=== PATIENT | female | born 1980 | race Caucasian/White ===

== ENCOUNTER → 2016-09-06 | Outpatient (CLI) | payer MEDICARE, MEDICAID ==
[~2016-09-06] MED LIST: ALLEGRA30 MG PO; ATARAX25 MG PO; BIRTH CONTROL1 EAC1 PO; CARAFATE1 G1 PO; CYMBALTA30 M1 PO; DOXYCYCLINE100 M2 PO; FLONASE 0.05% 121 EA NAS; FLONASE0.05 MG/AC NS; IBUPROFEN800 MG PO; MACROBID100 M1 PO; MIRALAX17 GM/DOSE PO; MULTI VITAMINS1 TAB PO; NITROFURANTOIN100 MG PO; PEPCID20 MG PO; PHENERGAN W/ DE30 ML PO; PREDNICOT10 MG PO; PREDNICOT20 MG PO; PREVACID30 M1 PO; PROAIR HFA0.09 MG/AC INH; PYRIDIUM200 MG PO; Phenergan25 MG PO; REGLAN10 M1 PO; REGLAN10 MG PO; REGLAN5 MG; REMERON15 M1 PO; SINGULAIR10 MG PO; STRATTERA10 MG PO; VIBRAMYCIN100 MG PO; VITAMIN D5000 IU PO; VITAMIN D50000 I3 PO; XANAX0.25 MG PO; XANAX0.5 MG PO; ZANTAC150 MG PO; ZITHROMAX Z PA250 MG PO; Zofran4 MG PO
[2016-09-06 10:58] LABS: ALBUMIN 3.9 gm/dl (3.1-4.5); ALKALINE PHOSPHATASE 63 U/L (45-117); BILIRUBIN, DIRECT < 0.1 mg/dL (0.0-0.2); BILIRUBIN, TOTAL 0.5 mg/dl (0.2-1.0); BUN 10 mg/dl (7-24); CHOLESTEROL 150 mg/dL (<200); EST GLOM FILT AFRICAN AMERICAN > 60 ml/min; GLUCOSE 86 mg/dL (65-99); HDL CHOLESTEROL 66 mg/dl (40-60); LDL CHOLESTEROL 66 mg/dL (9-159); SGOT/AST 21 IU/L (3-35); SGPT/ALT 17 U/L (12-78); TOTAL PROTEIN 6.6 gm/dL (6.4-8.2); TRIGLYCERIDES 89 mg/dl (<150); VLDL CHOLESTEROL 18 mg/dL (6-40)
[2016-09-06 11:13] LABS: FREE T4 1.07 ng/dl (0.76-1.46)
== END | disposition home or self-care (01) ==
LOC: LAB 09:54
PROVIDERS: Internal Medicine
DX: E78.4 Other hyperlipidemia (principal); E55.9 Vitamin D deficiency, unspecified; L98.8 Other specified disorders of the skin and subcutaneous tissue; R63.5 Abnormal weight gain; R73.02 Impaired glucose tolerance (oral); Z79.1 Long term (current) use of non-steroidal anti-inflammatories (NSAID)

== ENCOUNTER 2016-11-12 11:44 | Emergency (ER) | payer MEDICARE, OTHER ==
[~2016-11-12] VITALS: Ht 152.4 cm; Wt 56.7 kg
[2016-11-12 12:13] LABS: BASO % 0.2 % (0.0-1.0); EOS # 0.1 10*3/uL (0.0-0.4); EOS % 1.4 % (1.0-4.0); HEMATOCRIT 35.1 % (37.0-47.0); HEMOGLOBIN 12.6 g/dl (12.0-16.0); LYMPH # 1.4 10*3/uL (1.3-4.4); MEAN CELL VOLUME 90.9 fl (81.0-99.0); MEAN CORPUSCULAR HGB 32.6 pg (27.0-31.0); MEAN CORPUSCULAR HGB CONC 35.9 g/dl (33.0-37.0); MEAN PLATELET VOLUME 10.7 fl (9.6-12.3); MONO # 0.3 10*3/uL (0.1-1.0); MONO % 7.5 % (3.0-9.0); NEUT # 2.4 10*3/uL (2.3-7.9); NEUT % 57.7 % (47.0-73.0); PLATELET COUNT AUTOMATED 267 10*3/uL (130-400); RED BLOOD COUNT 3.86 10*6/uL (4.10-5.10); RED CELL DISTRI WIDTH 11.7 % (0-14.5); WHITE BLOOD COUNT 4.2 10*3/uL (4.8-10.8)
[2016-11-12 12:28] LABS: ALBUMIN 3.9 gm/dl (3.1-4.5); ALKALINE PHOSPHATASE 68 U/L (45-117); BILIRUBIN, TOTAL 0.3 mg/dl (0.2-1.0); BUN 12 mg/dl (7-24); CARBON DIOXIDE 27 mmol/L (21-32); CHLORIDE 107 mmol/L (98-107); EST GLOM FILT AFRICAN AMERICAN > 60 ml/min; GLUCOSE 91 mg/dL (65-99); SGOT/AST 16 IU/L (3-35); SGPT/ALT 17 U/L (12-78); SODIUM 140 mmol/L (136-145); TOTAL PROTEIN 6.7 gm/dL (6.4-8.2)
[2016-11-12 12:43] LABS: BILIRUBIN NEGATIVE (NEGATIVE); BLOOD NEGATIVE (NEGATIVE); CLARITY SL CLOUDY (CLEAR); COLOR YELLOW (YELLOW); GLUCOSE NEGATIVE (NEGATIVE); KETONE NEGATIVE (NEGATIVE); LEUKO ESTERASE NEGATIVE (NEGATIVE); NITRITE NEGATIVE (NEGATIVE); PROTEIN NEGATIVE (NEGATIVE); SPECIFIC GRAVITY >= 1.030 (1.005-1.030); UROBILINOGEN 0.2 E.U./dl (0.2-1.0)
[2016-11-12 12:52] LABS: BACTERIA 1+
[2016-11-12 12:53] LABS: URINE REFLEX COMMENT NO (NO)
[2016-11-12] MEDS ORDERED: ZOFRAN ODT4 MG SL (17:26)
== END 2016-11-12 20:19 | disposition home or self-care (01) ==
LOC: ED 11:44
PROVIDERS: Nurse Practitioner Family
DX: A08.4 Viral intestinal infection, unspecified (principal); K59.00 Constipation, unspecified; Z88.1 Allergy status to other antibiotic agents; Z79.899 Other long term (current) drug therapy

== ENCOUNTER → 2017-03-15 | Outpatient (CLI) | payer MEDICARE, OTHER ==
[~2017-03-15] MED LIST changes: +ZOFRAN ODT4 MG SL
[2017-03-15 12:37] LABS: ALBUMIN 4.1 gm/dl (3.1-4.5); BILIRUBIN, DIRECT 0.1 mg/dL (0.0-0.2); BUN 13 mg/dl (7-24); CHLORIDE 105 mmol/L (98-107); POTASSIUM 3.9 mmol/L (3.5-5.1); SODIUM 139 mmol/L (136-145)
[2017-03-15 12:41] LABS: ALKALINE PHOSPHATASE 73 U/L (45-117); CHOLESTEROL 163 mg/dL (<200); CREATININE 0.81 mg/dL (0.55-1.02); HDL CHOLESTEROL 69 mg/dl (40-60); LDL CHOLESTEROL 78 mg/dL (9-159); SGOT/AST 17 IU/L (3-35); SGPT/ALT 21 U/L (12-78); TOTAL PROTEIN 7.1 gm/dL (6.4-8.2); TRIGLYCERIDES 78 mg/dl (<150); VLDL CHOLESTEROL 16 mg/dL (6-40)
== END | disposition home or self-care (01) ==
LOC: LAB 11:41
PROVIDERS: Internal Medicine
DX: E55.9 Vitamin D deficiency, unspecified (principal); R73.02 Impaired glucose tolerance (oral); E78.4 Other hyperlipidemia; G47.62 Sleep related leg cramps; Z79.1 Long term (current) use of non-steroidal anti-inflammatories (NSAID)

== ENCOUNTER → 2017-06-20 | Outpatient (CLI) | payer MEDICARE, OTHER | END | disposition home or self-care (01) | LOC: US 15:39 | DX: R10.2 Pelvic and perineal pain (principal) ==

== ENCOUNTER → 2017-08-03 | Outpatient (CLI) | payer MEDICARE, OTHER | END | disposition home or self-care (01) | LOC: CT 08:37 | DX: R10.30 Lower abdominal pain, unspecified (principal); R11.0 Nausea ==

== ENCOUNTER 2017-08-07 18:16 | Inpatient (IN) | payer MEDICARE, OTHER ==
[2017-08-07] VITALS: BP 100/65
[~2017-08-07] VITALS: Ht 152.4 cm; Wt 62.8 kg
--- NOTE | ~2017-08-07 | O ---
[place], [place] OPERATIVE NOTE [id number] UN[facility] #: [id number] ROOM: 502 DOCTOR: SUBHASH MORENOFAITHRADHA BIRTHDATE: [birth year] DOS: 08/09/2017 GASTROENDOSCOPIC REPORT INDICATIONS: A 36-year-old patient who has presented with a chief complaint of repeated emesis and the patient with history of collagenous colitis as well in the past approximately 3 years ago. PAST MEDICAL HISTORY: Anxiety, asthma, ADHD, allergic rhinitis, and GERD. PAST SURGICAL HISTORY: None. SOCIAL HISTORY: Nonsmoker, nonalcohol consumer. FAMILY HISTORY: Noncontributory. ALLERGIES: LEVOFLOXACIN. MEDICATIONS: List at home reviewed, includes metoclopramide as well a.c. and at bedtime 4 times a day. DIAGNOSTIC DATA: Labs reviewed and records reviewed. Her serum was negative. Sonogram of the abdomen has been reviewed. Mild left renal atrophy has been noticed. Urine culture negative and echocardiogram benign. Hemoglobin A1c 5.2. Comprehensive metabolic panel of the admission. GFR greater than 60. Lipase was 421, nonspecific. Amylase within normal limits. CT scan of the abdomen and pelvis, no evidence of acute traumatic injury was noticed. PROCEDURE: Today's procedure part of investigation of nausea and vomiting is panendoscopy plus biopsy. PREMEDICATION: Versed and propofol. SCOPE: Olympus forward-viewing gastroscope Q10 video. REPORT: After putting the patient in left lateral position and application of lubricant to the scope, the scope was introduced. Thereafter, under direct visualization, advanced through the length of esophagus without difficulty. Gastric pouch was entered. Evidence of bile reflux gastritis was noticed. Antrum was biopsied. Duodenal bulb consistent with duodenitis. Antral biopsy obtained. GI reflection of the scope reveals proximal gastritis as well due to the efflux of the bile into the proximal stomach photographed. Air was suctioned out. The patient was extubated and tolerated the procedure well. IMPRESSION: Bile reflux gastritis, status post biopsy. PLAN AND DISCUSSION: We are going to treat this patient with sucralfate slurry 2 g 2 hours a.c. and at bedtime. Continue with Protonix 40 mg IV b.i.d. while inpatient and she has been on Reglan 10 mg before meals and at bedtime. We are going to make sure that she gets the same dose and antireflux with elevation of [place], [place] OPERATIVE NOTE NAME: NAYELI GREGG UNIT #: [id number] ROOM: [facility] DOCTOR: SUBHASH MORENO,JESSICA BIRTHDATE: [birth year] the head of the bed 10 inches all time. GERD diet and clinical reassessment. I have reviewed her lab results. We are going to proceed with endoscopy today. JESSICA CULLEN MD CM:OPRECORD:OPERATIVE NOTE 1305 [id number] JESSICA CULLEN MD 08/09/17 1329 interface
[~2017-08-07 18:16] MED LIST changes: -PROAIR HFA0.09 MG/AC INH; +PROAIR HFA8.5 GM INH
[2017-08-07 18:20] VITALS: BP 105/60
[2017-08-07 18:46] LABS: BASO % 0.3 % (0.0-1.0); EOS # 0.1 10*3/uL (0.0-0.4); EOS % 0.7 % (1.0-4.0); HEMATOCRIT 34.9 % (37.0-47.0); HEMOGLOBIN 12.1 g/dl (12.0-16.0); LYMPH # 1.4 10*3/uL (1.3-4.4); MEAN CELL VOLUME 92.3 fl (81.0-99.0); MEAN CORPUSCULAR HGB CONC 34.7 g/dl (33.0-37.0); MEAN PLATELET VOLUME 10.9 fl (9.6-12.3); MONO # 0.5 10*3/uL (0.1-1.0); MONO % 7.1 % (3.0-9.0); NEUT # 5.3 10*3/uL (2.3-7.9); NEUT % 72.8 % (47.0-73.0); PLATELET COUNT AUTOMATED 240 10*3/uL (130-400); RED BLOOD COUNT 3.78 10*6/uL (4.10-5.10); RED CELL DISTRI WIDTH 12.1 % (0-14.5); WHITE BLOOD COUNT 7.3 10*3/uL (4.8-10.8)
[2017-08-07 19:01] LABS: ALBUMIN 3.9 gm/dl (3.1-4.5); ALKALINE PHOSPHATASE 60 U/L (45-117); BUN 15 mg/dl (7-24); CHLORIDE 107 mmol/L (98-107); LIPASE 421 U/L (73-393); POTASSIUM 3.7 mmol/L (3.5-5.1); SGOT/AST 13 IU/L (3-35); SGPT/ALT 17 U/L (12-78); SODIUM 141 mmol/L (136-145); TOTAL PROTEIN 6.4 gm/dL (6.4-8.2)
[2017-08-07 20:00] VITALS: BP 100/65
[2017-08-07 21:14] LABS: BILIRUBIN NEGATIVE (NEGATIVE); BLOOD 3+ (NEGATIVE); CLARITY CLEAR (CLEAR); COLOR YELLOW (YELLOW); GLUCOSE NEGATIVE (NEGATIVE); KETONE TRACE (NEGATIVE); LEUKO ESTERASE NEGATIVE (NEGATIVE); NITRITE NEGATIVE (NEGATIVE); PH 5.5 (5.0-9.0); UROBILINOGEN 0.2 E.U./dl (0.2-1.0)
[2017-08-07 21:31] LABS: RBC TNTC rbc/hpf (0-2)
[2017-08-07 21:32] LABS: BACTERIA 2+
[2017-08-07 22:15] VITALS: BP 116/71
[2017-08-08 07:05] LABS: BASO % 0.4 % (0.0-1.0); EOS % 0.4 % (1.0-4.0); HEMATOCRIT 33.2 % (37.0-47.0); HEMOGLOBIN 11.3 g/dl (12.0-16.0); LYMPH # 1.2 10*3/uL (1.3-4.4); MEAN CELL VOLUME 93.8 fl (81.0-99.0); MEAN CORPUSCULAR HGB 31.9 pg (27.0-31.0); MEAN PLATELET VOLUME 11.7 fl (9.6-12.3); MONO # 0.4 10*3/uL (0.1-1.0); MONO % 7.4 % (3.0-9.0); NEUT # 3.4 10*3/uL (2.3-7.9); NEUT % 67.6 % (47.0-73.0); PLATELET COUNT AUTOMATED 204 10*3/uL (130-400); RED BLOOD COUNT 3.54 10*6/uL (4.10-5.10)
[2017-08-08 07:29] LABS: ALBUMIN 3.2 gm/dl (3.1-4.5); BUN 11 mg/dl (7-24); CHLORIDE 111 mmol/L (98-107); CHOLESTEROL 110 mg/dL (<200); CREATININE 0.71 mg/dL (0.55-1.02); POTASSIUM 3.8 mmol/L (3.5-5.1); SGOT/AST 11 IU/L (3-35); SGPT/ALT 15 U/L (12-78); SODIUM 142 mmol/L (136-145); TOTAL PROTEIN 5.4 gm/dL (6.4-8.2); TRIGLYCERIDES 54 mg/dl (<150); VLDL CHOLESTEROL 11 mg/dL (6-40)
[2017-08-08 07:35] LABS: ALKALINE PHOSPHATASE 53 U/L (45-117); HDL CHOLESTEROL 48 mg/dl (40-60); LDL CHOLESTEROL 51 mg/dL (9-159)
[2017-08-08 08:00] VITALS: BP 110/58
[2017-08-08 08:32] LABS: VITAMIN D, 25-HYDROXY 20.7 ng/mL (30-100)
[2017-08-08] MEDS ORDERED: CARAFATE1 G1 PO (09:56)
[2017-08-08] MEDS ORDERED: APRI 28 DAY TA1 EACH PO (09:57)
[2017-08-08] MEDS ORDERED: LEXAPRO10 MG PO (09:57)
[2017-08-08] MEDS ORDERED: PROTONIX IV40 MG PO (09:58)
[2017-08-08] MEDS ORDERED: ALLEGRA ALLERG180 M2 PO (09:58)
[2017-08-08] MEDS ORDERED: XANAX0.5 MG PO (10:00)
[2017-08-08] MEDS ORDERED: ADVAIR 250/501 EA INH (10:07)
[2017-08-08] MEDS ORDERED: STRATTERA60 MG PO (10:08)
[2017-08-08 12:00] VITALS: BP 100/57
[2017-08-08 16:00] VITALS: BP 92/62
[2017-08-08 20:00] VITALS: BP 105/67
[2017-08-09] VITALS (9 sets, daily range): BP systolic 106–145; BP diastolic 60–74
[2017-08-09 06:43] LABS: BUN 8 mg/dl (7-24); CHLORIDE 114 mmol/L (98-107); CREATININE 0.69 mg/dL (0.55-1.02); POTASSIUM 3.8 mmol/L (3.5-5.1); SODIUM 144 mmol/L (136-145)
[2017-08-09 06:44] LABS: BASO % 0.5 % (0.0-1.0); EOS % 0.2 % (1.0-4.0); HEMATOCRIT 32.5 % (37.0-47.0); LYMPH # 0.9 10*3/uL (1.3-4.4); MEAN CELL VOLUME 94.8 fl (81.0-99.0); MEAN CORPUSCULAR HGB 32.1 pg (27.0-31.0); MEAN CORPUSCULAR HGB CONC 33.8 g/dl (33.0-37.0); MEAN PLATELET VOLUME 11.7 fl (9.6-12.3); MONO # 0.3 10*3/uL (0.1-1.0); MONO % 6.5 % (3.0-9.0); NEUT # 3.1 10*3/uL (2.3-7.9); NEUT % 71.6 % (47.0-73.0); PLATELET COUNT AUTOMATED 186 10*3/uL (130-400); RED BLOOD COUNT 3.43 10*6/uL (4.10-5.10); RED CELL DISTRI WIDTH 12.2 % (0-14.5); WHITE BLOOD COUNT 4.3 10*3/uL (4.8-10.8)
[2017-08-10] VITALS: BP 149/66
[2017-08-10 06:52] LABS: BASO % 0.2 % (0.0-1.0); EOS % 0.8 % (1.0-4.0); HEMATOCRIT 31.4 % (37.0-47.0); HEMOGLOBIN 11.1 g/dl (12.0-16.0); LYMPH % 19.4 % (27.0-41.0); MEAN CELL VOLUME 92.1 fl (81.0-99.0); MEAN CORPUSCULAR HGB 32.6 pg (27.0-31.0); MEAN CORPUSCULAR HGB CONC 35.4 g/dl (33.0-37.0); MEAN PLATELET VOLUME 12.1 fl (9.6-12.3); MONO # 0.4 10*3/uL (0.1-1.0); MONO % 7.1 % (3.0-9.0); NEUT # 3.7 10*3/uL (2.3-7.9); NEUT % 72.3 % (47.0-73.0); PLATELET COUNT AUTOMATED 190 10*3/uL (130-400); RED BLOOD COUNT 3.41 10*6/uL (4.10-5.10); WHITE BLOOD COUNT 5.1 10*3/uL (4.8-10.8)
[2017-08-10 07:06] LABS: BUN 7 mg/dl (7-24); CHLORIDE 111 mmol/L (98-107); CREATININE 0.71 mg/dL (0.55-1.02); POTASSIUM 3.2 mmol/L (3.5-5.1); SODIUM 143 mmol/L (136-145)
[2017-08-10 08:00] VITALS: BP 128/78
[2017-08-10 12:00] VITALS: BP 129/72
== END 2017-08-10 16:00 | disposition home or self-care (01) | DRG 391 ==
LOC: ED 18:16 → 5E 21:25 → EDHOLD 21:25 → 5E 21:44
PROVIDERS: Emergency Medicine; Family Medicine; Internal Medicine Hospice and Palliative Medicine
PROC: 0DB68ZX Excision of Stomach, Via Natural or Artificial Opening Endoscopic, Diagnostic (ICD-10-PCS; principal; 2017-08-09)
DX: K52.9 Noninfective gastroenteritis and colitis, unspecified (principal); K85.90 Acute pancreatitis without necrosis or infection, unspecified; R55 Syncope and collapse; K21.9 Gastro-esophageal reflux disease without esophagitis; F90.9 Attention-deficit hyperactivity disorder, unspecified type; R31.29 Other microscopic hematuria; F41.1 Generalized anxiety disorder; D72.810 Lymphocytopenia; R73.9 Hyperglycemia, unspecified; E55.9 Vitamin D deficiency, unspecified; J45.909 Unspecified asthma, uncomplicated; K29.80 Duodenitis without bleeding; K29.60 Other gastritis without bleeding; W18.30XA Fall on same level, unspecified, initial encounter; Y93.89 Activity, other specified; Y92.89 Other specified places as the place of occurrence of the external cause; Y99.8 Other external cause status; Z88.1 Allergy status to other antibiotic agents; Z83.3 Family history of diabetes mellitus; Z80.9 Family history of malignant neoplasm, unspecified; Z82.49 Family history of ischemic heart disease and other diseases of the circulatory system; Z83.49 Family history of other endocrine, nutritional and metabolic diseases; Z83.79 Family history of other diseases of the digestive system; Z79.899 Other long term (current) drug therapy; Z79.51 Long term (current) use of inhaled steroids

== ENCOUNTER 2018-03-28 12:36 | Emergency (ER) | payer MEDICARE, OTHER ==
[~2018-03-28] VITALS: Ht 152.4 cm; Wt 61.7 kg
[~2018-03-28 12:36] MED LIST changes: +ADVAIR 250/501 EA INH; +ALLEGRA ALLERG180 M2 PO; +APRI 28 DAY TA1 EACH PO; +LEXAPRO10 MG PO; +MIRALAX17 GM PO; +PROTONIX IV40 MG PO; +STRATTERA60 MG PO; +Zofran4 MG SL
[2018-03-28] MEDS ORDERED: CLARITIN10 MG PO (13:12)
[2018-03-28] MEDS ORDERED: PREDNISONE10 MG PO (13:12)
[2018-03-28] MEDS ORDERED: FLONASE ALLERG9.9 ML NAS (13:12)
== END 2018-03-28 14:31 | disposition home or self-care (01) ==
LOC: ED 12:36
DX: B34.9 Viral infection, unspecified (principal); K21.9 Gastro-esophageal reflux disease without esophagitis; J45.909 Unspecified asthma, uncomplicated; Z88.1 Allergy status to other antibiotic agents; Z79.899 Other long term (current) drug therapy

== ENCOUNTER → 2018-05-15 | Outpatient (CLI) | payer MEDICARE, OTHER ==
[~2018-05-15] MED LIST changes: +CLARITIN10 MG PO; +FLONASE ALLERG9.9 ML NAS; +PREDNISONE10 MG PO
== END | disposition home or self-care (01) ==
LOC: US 13:30
DX: N91.2 Amenorrhea, unspecified (principal)

== ENCOUNTER → 2018-12-04 | Outpatient (CLI) | payer OTHER | END | disposition home or self-care (01) | LOC: US 10:00 | DX: R11.2 Nausea with vomiting, unspecified (principal); R10.11 Right upper quadrant pain ==

== ENCOUNTER → 2018-12-18 | Outpatient (CLI) | payer OTHER | END | disposition home or self-care (01) | LOC: NM 06:52 | DX: R11.2 Nausea with vomiting, unspecified (principal); R10.11 Right upper quadrant pain; R11.0 Nausea ==

== ENCOUNTER 2019-01-05 18:27 | Emergency (ER) | payer OTHER ==
[~2019-01-05] VITALS: Ht 152.4 cm; Wt 68.9 kg
[2019-01-05 19:33] LABS: BASO % 0.2 % (0.0-1.0); EOS % 0.2 % (1.0-4.0); HEMATOCRIT 35.2 % (37.0-47.0); HEMOGLOBIN 11.9 g/dl (12.0-16.0); LYMPH # 1.9 10*3/uL (1.3-4.4); LYMPH % 32.1 % (27.0-41.0); MEAN CORPUSCULAR HGB 30.7 pg (27.0-31.0); MEAN CORPUSCULAR HGB CONC 33.8 g/dl (33.0-37.0); MEAN PLATELET VOLUME 10.7 fl (9.6-12.3); MONO # 0.6 10*3/uL (0.1-1.0); MONO % 9.8 % (3.0-9.0); NEUT # 3.4 10*3/uL (2.3-7.9); NEUT % 57.5 % (47.0-73.0); PLATELET COUNT AUTOMATED 310 10*3/uL (130-400); RED BLOOD COUNT 3.87 10*6/uL (4.10-5.10); RED CELL DISTRI WIDTH 12.6 % (0-14.5); WHITE BLOOD COUNT 5.8 10*3/uL (4.8-10.8)
[2019-01-05 19:48] LABS: ALBUMIN 3.7 gm/dl (3.1-4.5); ALKALINE PHOSPHATASE 73 U/L (45-117); BUN 16 mg/dl (7-24); CHLORIDE 109 mmol/L (98-107); CREATININE 0.99 mg/dL (0.55-1.02); LIPASE 505 U/L (73-393); SGOT/AST 24 IU/L (3-35); SGPT/ALT 37 U/L (12-78); SODIUM 140 mmol/L (136-145); TOTAL PROTEIN 6.8 gm/dL (6.4-8.2)
[2019-01-05 19:54] LABS: BILIRUBIN NEGATIVE (NEGATIVE); BLOOD NEGATIVE (NEGATIVE); CLARITY CLEAR (CLEAR); COLOR YELLOW (YELLOW); GLUCOSE NEGATIVE (NEGATIVE); KETONE NEGATIVE (NEGATIVE); LEUKO ESTERASE NEGATIVE (NEGATIVE); NITRITE NEGATIVE (NEGATIVE); SPECIFIC GRAVITY 1.015 (1.005-1.030)
[2019-01-05 20:21] LABS: BACTERIA 1+; RBC 0-2 rbc/hpf (0-2); WBC 0-2 wbc/hpf (0-5)
== END 2019-01-05 22:59 | disposition home or self-care (01) ==
LOC: ED 18:27
PROVIDERS: Emergency Medicine
DX: N83.202 Unspecified ovarian cyst, left side (principal); R19.7 Diarrhea, unspecified; J45.909 Unspecified asthma, uncomplicated; K21.9 Gastro-esophageal reflux disease without esophagitis; Z88.1 Allergy status to other antibiotic agents; Z79.899 Other long term (current) drug therapy

== ENCOUNTER → 2019-01-07 | Outpatient (CLI) | payer OTHER ==
[2019-01-07 09:10] LABS: FREE T4 0.93 ng/dl (0.76-1.46); THYROID STIM HORMONE (HS) 2.82 uIU/ml (0.358-4.75)
[2019-01-07 10:24] LABS: VITAMIN D, 25-HYDROXY 24.6 ng/mL (30-100)
[2019-01-08 06:06] LABS: LUTEINIZING HORMONE 004283 6.3 mIU/mL (.); PROLACTIN 004465 21.3 ng/mL (4.8-23.3)
[2019-01-08 17:09] LABS: t-TRANSGLUTAMINASE (tTG) IGA <2 U/mL (0-3)
[2019-01-09 16:07] LABS: TESTOSTERONE FREE, (DIRECT) 2.2 pg/mL (0.0-4.2)
[2019-01-11 10:16] LABS: 17-OH PROGESTERONE 194 ng/dL (.)
[2019-01-11 11:18] LABS: ANTIMULLERIAN HORMONE 500183 0.066 ng/mL (.)
[2019-01-16 17:05] LABS: ADRENAL 21-HYDROXYLASE AB <1.0 U/mL (.)
== END | disposition home or self-care (01) ==
LOC: LAB 07:49
PROVIDERS: Internal Medicine Endocrinology, Diabetes & Metabolism
DX: E55.9 Vitamin D deficiency, unspecified (principal); N91.2 Amenorrhea, unspecified; E53.8 Deficiency of other specified B group vitamins; R63.5 Abnormal weight gain; Z79.899 Other long term (current) drug therapy

== ENCOUNTER → 2019-05-01 | Day surgery (SDC) | payer OTHER ==
[~2019-05-01] VITALS: Ht 152.4 cm; Wt 64.0 kg
[~2019-05-01] MED LIST changes: +BUSPAR5 MG PO
[2019-05-01 08:38] VITALS: BP 112/55
[2019-05-01 09:15] VITALS: BP 101/51
[2019-05-01 09:31] VITALS: BP 101/51
== END | disposition home or self-care (01) ==
LOC: SDC 04-27 08:45
DX: K21.9 Gastro-esophageal reflux disease without esophagitis (principal); K29.70 Gastritis, unspecified, without bleeding; J45.909 Unspecified asthma, uncomplicated; K29.50 Unspecified chronic gastritis without bleeding; K92.1 Melena; F41.9 Anxiety disorder, unspecified; Z79.899 Other long term (current) drug therapy; Z83.3 Family history of diabetes mellitus; Z80.8 Family history of malignant neoplasm of other organs or systems

== ENCOUNTER → 2019-09-18 | Outpatient (CLI) | payer OTHER ==
[2019-09-18 09:01] LABS: BASO % 0.2 % (0.0-1.0); EOS # 0.1 10*3/uL (0.0-0.4); EOS % 1.1 % (1.0-4.0); HEMATOCRIT 37.6 % (37.0-47.0); LYMPH # 1.4 10*3/uL (1.3-4.4); LYMPH % 31.3 % (27.0-41.0); MEAN CELL VOLUME 92.8 fl (81.0-99.0); MEAN CORPUSCULAR HGB 30.4 pg (27.0-31.0); MEAN CORPUSCULAR HGB CONC 32.7 g/dl (33.0-37.0); MEAN PLATELET VOLUME 10.8 fl (9.6-12.3); MONO # 0.3 10*3/uL (0.1-1.0); MONO % 6.8 % (3.0-9.0); NEUT # 2.8 10*3/uL (2.3-7.9); NEUT % 60.4 % (47.0-73.0); PLATELET COUNT AUTOMATED 359 10*3/uL (130-400); RED BLOOD COUNT 4.05 10*6/uL (4.10-5.10); RED CELL DISTRI WIDTH 12.6 % (0-14.5); WHITE BLOOD COUNT 4.6 10*3/uL (4.8-10.8)
[2019-09-18 09:39] LABS: ALBUMIN 3.1 gm/dl (3.1-4.5); ALKALINE PHOSPHATASE 59 U/L (45-117); BUN 12 mg/dl (7-24); CHLORIDE 112 mmol/L (98-107); CHOLESTEROL 190 mg/dL (<200); CREATININE 0.96 mg/dL (0.55-1.02); FREE T4 1.24 ng/dl (0.76-1.46); HDL CHOLESTEROL 40 mg/dl (40-60); LDL CHOLESTEROL 116 mg/dL (9-159); SGOT/AST 22 IU/L (3-35); SGPT/ALT 19 U/L (12-78); SODIUM 139 mmol/L (136-145); TOTAL PROTEIN 6.7 gm/dL (6.4-8.2); TRIGLYCERIDES 172 mg/dl (<150); VLDL CHOLESTEROL 34 mg/dL (6-40)
[2019-09-18 09:46] LABS: POTASSIUM 4.1 mmol/L (3.5-5.1)
== END | disposition home or self-care (01) ==
LOC: LAB 08:32
PROVIDERS: Family Medicine
DX: R10.33 Periumbilical pain (principal); F41.9 Anxiety disorder, unspecified; E55.9 Vitamin D deficiency, unspecified; Z68.30 Body mass index [BMI] 30.0-30.9, adult; Z79.899 Other long term (current) drug therapy

== ENCOUNTER → 2019-11-30 | Outpatient (CLI) | payer OTHER | END | disposition home or self-care (01) | LOC: US 13:50 | PROVIDERS: ATTEND Nurse Practitioner Women's Health | DX: R10.30 Lower abdominal pain, unspecified (principal) ==

== ENCOUNTER → 2020-01-12 | Outpatient (CLI) | payer OTHER | END | disposition home or self-care (01) | LOC: CT 08:22 | PROVIDERS: ATTEND Family Medicine | DX: R10.30 Lower abdominal pain, unspecified (principal) ==

== ENCOUNTER → 2020-07-12 | Outpatient (CLI) | payer OTHER | END | disposition home or self-care (01) | LOC: D 14:22 | PROVIDERS: ATTEND Family Medicine | DX: R63.5 Abnormal weight gain (principal) ==

== ENCOUNTER → 2020-08-11 | Outpatient (CLI) | payer OTHER | END | disposition home or self-care (01) | LOC: D 14:00 | PROVIDERS: ATTEND Family Medicine | DX: R63.5 Abnormal weight gain (principal); Z68.32 Body mass index [BMI] 32.0-32.9, adult ==

== ENCOUNTER → 2020-09-28 | Outpatient (CLI) | payer OTHER | END | disposition home or self-care (01) | LOC: MAMMO 07:17 | PROVIDERS: ATTEND Family Medicine | DX: Z12.31 Encounter for screening mammogram for malignant neoplasm of breast (principal); N64.89 Other specified disorders of breast ==

== ENCOUNTER → 2020-10-06 | Outpatient (CLI) | payer OTHER | END | disposition home or self-care (01) | LOC: D 14:45 | PROVIDERS: ATTEND Family Medicine | DX: R63.5 Abnormal weight gain (principal) ==

== ENCOUNTER → 2020-11-01 | Day surgery (SDC) | payer OTHER ==
[~2020-11-01] VITALS: Ht 152.4 cm; Wt 75.3 kg
[2020-11-01 08:15] VITALS: BP 92/46
[2020-11-01 10:04] VITALS: BP 105/59
[2020-11-01 10:19] VITALS: BP 121/61
[2020-11-01 10:34] VITALS: BP 119/71
[2020-11-01 10:49] VITALS: BP 127/77
[2020-11-04 00:06] LABS: CHLAMYDIA NAA Negative (Negative)
== END | disposition home or self-care (01) ==
LOC: SDC 10-21 09:30
PROVIDERS: ATTEND Obstetrics & Gynecology
DX: Z01.419 Encounter for gynecological examination (general) (routine) without abnormal findings (principal); N91.2 Amenorrhea, unspecified; F41.9 Anxiety disorder, unspecified; K21.9 Gastro-esophageal reflux disease without esophagitis; J45.909 Unspecified asthma, uncomplicated; G47.00 Insomnia, unspecified; F90.9 Attention-deficit hyperactivity disorder, unspecified type; I25.10 Atherosclerotic heart disease of native coronary artery without angina pectoris; Z79.899 Other long term (current) drug therapy

== ENCOUNTER → 2020-11-07 | Outpatient (CLI) | payer OTHER | END | disposition home or self-care (01) | LOC: D 11:07 | PROVIDERS: ATTEND Family Medicine | DX: R63.5 Abnormal weight gain (principal) ==

== ENCOUNTER → 2021-01-25 | Outpatient (CLI) | payer OTHER | END | disposition home or self-care (01) | LOC: NM 00:30 | PROVIDERS: ATTEND Internal Medicine Gastroenterology | DX: K21.9 Gastro-esophageal reflux disease without esophagitis (principal); R01.1 Cardiac murmur, unspecified; R68.81 Early satiety ==

== ENCOUNTER → 2021-08-10 | Outpatient (CLI) | payer OTHER | END | disposition home or self-care (01) | LOC: LAB 09:12 | PROVIDERS: ATTEND Internal Medicine Critical Care Medicine | DX: R06.02 Shortness of breath (principal); R53.83 Other fatigue; G25.81 Restless legs syndrome; Z68.35 Body mass index [BMI] 35.0-35.9, adult ==

== ENCOUNTER → 2021-09-11 | Outpatient (CLI) | payer OTHER ==
[2021-09-11 08:54] LABS: BASO % 0.4 % (0.0-1.0); EOS # 0.1 10*3/uL (0.0-0.4); EOS % 2.1 % (1.0-4.0); HEMATOCRIT 35.3 % (37.0-47.0); LYMPH # 1.2 10*3/uL (1.3-4.4); LYMPH % 25.2 % (27.0-41.0); MEAN CELL VOLUME 87.4 fl (81.0-99.0); MEAN CORPUSCULAR HGB 30.4 pg (27.0-31.0); MEAN CORPUSCULAR HGB CONC 34.8 g/dl (33.0-37.0); MEAN PLATELET VOLUME 10.1 fl (9.6-12.3); MONO # 0.5 10*3/uL (0.1-1.0); NEUT # 2.9 10*3/uL (2.3-7.9); NEUT % 62.1 % (47.0-73.0); PLATELET COUNT AUTOMATED 280 10*3/uL (130-400); RED BLOOD COUNT 4.04 10*6/uL (4.10-5.10); RED CELL DISTRI WIDTH 12.3 % (0-14.5); WHITE BLOOD COUNT 4.7 10*3/uL (4.8-10.8)
[2021-09-11 09:04] LABS: ACT PARTIAL THROMBO TIME 29.3 SECONDS (20.0-32.1); INTERNATIONAL NORM RATIO 0.9 (2.0-3.5)
== END | disposition home or self-care (01) ==
LOC: LAB 08:39
PROVIDERS: Family Medicine; ATTEND Internal Medicine Critical Care Medicine
DX: R06.02 Shortness of breath (principal); K92.0 Hematemesis; R53.83 Other fatigue; G25.81 Restless legs syndrome; Z68.35 Body mass index [BMI] 35.0-35.9, adult

== ENCOUNTER → 2023-01-16 | Outpatient (CLI) | payer OTHER | END | disposition home or self-care (01) | LOC: MAMMO 10:42 | PROVIDERS: ATTEND Internal Medicine | DX: Z12.31 Encounter for screening mammogram for malignant neoplasm of breast (principal) ==

== ENCOUNTER → 2023-01-21 | Outpatient (CLI) | payer OTHER | END | disposition home or self-care (01) | LOC: LAB 08:24 | PROVIDERS: ATTEND Internal Medicine | DX: R19.7 Diarrhea, unspecified (principal) ==

== ENCOUNTER → 2023-03-05 | Outpatient (CLI) | payer OTHER | END | disposition home or self-care (01) | LOC: RAD 08:13 | PROVIDERS: ATTEND Specialist | DX: R09.89 Other specified symptoms and signs involving the circulatory and respiratory systems (principal) ==

== ENCOUNTER 2023-07-24 15:06 | Emergency (ER) | payer OTHER ==
[~2023-07-24] VITALS: Ht 154.9 cm; Wt 77.6 kg
[2023-07-24] MEDS ORDERED: Ondansetron Hydrochloride 4 MG/2 ML VIAL IV ONE (15:40)
[2023-07-24] MEDS ORDERED: SODIUM CHLORIDE 0.9% 1,000 ML IV ONE (15:40)
[2023-07-24 15:56] LABS: HEMATOCRIT 38.9 % (37.0-47.0); MEAN CELL VOLUME 92.2 fl (81.0-99.0); MEAN CORPUSCULAR HGB 30.6 pg (27.0-31.0); MEAN CORPUSCULAR HGB CONC 33.2 g/dl (33.0-37.0); MEAN PLATELET VOLUME 10.5 fl (9.6-12.3); PLATELET COUNT AUTOMATED 324 10*3/uL (130-400); RED BLOOD COUNT 4.22 10*6/uL (4.10-5.10); RED CELL DISTRI WIDTH 12.4 % (0-14.5); WHITE BLOOD COUNT 12.8 10*3/uL (4.8-10.8)
[2023-07-24 15:59] LABS: BILIRUBIN 1+ (Negative); BLOOD 3+ (Negative); CLARITY Turbid (Clear); COLOR Dark Yellow (Yellow); GLUCOSE Negative (Negative); KETONE Trace (Negative); LEUKO ESTERASE 2+ (Negative); NITRITE Negative (Negative); SPECIFIC GRAVITY 1.025 (1.001-1.030)
[2023-07-24 16:01] LABS: MANUAL DIFF REFLEX YES
[2023-07-24 16:11] LABS: BACTERIA 2+; MUCOUS 1+; RBC 21-30 rbc/hpf (0-2); WBC 31-40 wbc/hpf (0-5)
[2023-07-24 16:21] LABS: TOTAL CELLS COUNTED 100 #CELLS
[2023-07-24 16:22] LABS: PLATELET SUFFICIENCY NORMAL (NORMAL)
[2023-07-24 16:23] LABS: OVALOCYTES FEW
[2023-07-24 16:24] LABS: BUN 18 mg/dl (9-23); CHLORIDE 109 mmol/L (98-107); POTASSIUM 3.8 mmol/L (3.4-5.1)
[2023-07-24] MEDS ORDERED: Ceftriaxone Sodium 1 GM/10 ML SYR IV ONE (16:40)
[2023-07-24] MEDS ORDERED: LOPERAMIDE HCL2 MG PO (16:45)
[2023-07-24] MEDS ORDERED: ESOMEPRAZOLE MA40 M1 PO (16:47)
[2023-07-24] MEDS ORDERED: ROPINIROLE HYD0.5 MG PO (16:47)
[2023-07-24] MEDS ORDERED: ARNUITY ELLIP100 MCG INH (16:48)
[2023-07-24] MEDS ORDERED: PANTOPRAZOLE SO40 MG PO (16:49)
[2023-07-24] MEDS ORDERED: FAMOTIDINE40 MG PO (16:50)
[2023-07-24] MEDS ORDERED: ATOMOXETINE HCL25 MG PO (16:50)
[2023-07-24] MEDS ORDERED: DAILY PROBIOTI250 MG PO (16:51)
[2023-07-24] MEDS ORDERED: PROAIR DIGIHAL90 MCG INH (16:53)
[2023-07-24] MEDS ORDERED: MONTELUKAST SOD10 MG PO (16:53)
[2023-07-24] MEDS ORDERED: 'XANAX1 MG PO (16:54)
[2023-07-24] MEDS ORDERED: Carafate1 GM PO (16:55)
[2023-07-24] MEDS ORDERED: TOPIRAMATE100 M2 PO (16:56)
[2023-07-24] MEDS ORDERED: VITAMIN D3125 MCG PO (16:56)
[2023-07-24] MEDS ORDERED: FEROSUL325 M1 PO (16:57)
[2023-07-24] MEDS ORDERED: HYDROmorphONE Hydrochloride 0.5 MG/0.5 ML SYRINGE IV ONE (17:40)
[2023-07-24] MEDS ORDERED: HYDROCODONE-AC1 EAC1 PO (19:06)
[2023-07-24] MEDS ORDERED: FLOMAX0.4 MG PO (19:06)
[2023-07-24] MEDS ORDERED: OMNICEF300 MG PO (19:06)
[2023-07-24] MEDS ORDERED: Acetaminophen/Hydrocodone 5 MG/325 MG TABLET PO ONE (19:10)
== END 2023-07-24 19:24 | disposition home or self-care (01) ==
LOC: ED 15:06
PROVIDERS: Nurse Practitioner Family
DX: N20.0 Calculus of kidney (principal); R11.2 Nausea with vomiting, unspecified; F90.9 Attention-deficit hyperactivity disorder, unspecified type; J45.909 Unspecified asthma, uncomplicated; F41.9 Anxiety disorder, unspecified; K21.9 Gastro-esophageal reflux disease without esophagitis; Z88.8 Allergy status to other drugs, medicaments and biological substances; Z90.49 Acquired absence of other specified parts of digestive tract; Z98.890 Other specified postprocedural states

== ENCOUNTER → 2023-10-04 | Outpatient (CLI) | payer OTHER ==
[~2023-10-04] MED LIST changes: +'XANAX1 MG PO; +ARNUITY ELLIP100 MCG INH; +ATOMOXETINE HCL25 MG PO; +Carafate1 GM PO; +DAILY PROBIOTI250 MG PO; +ESOMEPRAZOLE MA40 M1 PO; +FAMOTIDINE40 MG PO; +FEROSUL325 M1 PO; +FLOMAX0.4 MG PO; +HYDROCODONE-AC1 EAC1 PO; +LOPERAMIDE HCL2 MG PO; +MONTELUKAST SOD10 MG PO; +OMNICEF300 MG PO; +PANTOPRAZOLE SO40 MG PO; +PROAIR DIGIHAL90 MCG INH; +ROPINIROLE HYD0.5 MG PO; +TOPIRAMATE100 M2 PO; +VITAMIN D3125 MCG PO
[2023-10-04 12:08] LABS: BASO % 0.5 % (0.0-1.0); EOS # 0.2 10*3/uL (0.0-0.4); HEMATOCRIT 35.2 % (37.0-47.0); LYMPH # 1.6 10*3/uL (1.3-4.4); LYMPH % 27.5 % (27.0-41.0); MEAN CORPUSCULAR HGB 30.9 pg (27.0-31.0); MEAN CORPUSCULAR HGB CONC 34.4 g/dl (33.0-37.0); MEAN PLATELET VOLUME 9.9 fl (9.6-12.3); MONO # 0.4 10*3/uL (0.1-1.0); MONO % 7.3 % (3.0-9.0); NEUT # 3.5 10*3/uL (2.3-7.9); NEUT % 61.5 % (47.0-73.0); PLATELET COUNT AUTOMATED 281 10*3/uL (130-400); RED BLOOD COUNT 3.91 10*6/uL (4.10-5.10); RED CELL DISTRI WIDTH 12.1 % (0-14.5); WHITE BLOOD COUNT 5.6 10*3/uL (4.8-10.8)
[2023-10-04 12:33] LABS: ALKALINE PHOSPHATASE 89 U/L (46-116); BUN 17 mg/dl (9-23); CHLORIDE 107 mmol/L (98-107); SGPT/ALT 30 U/L (5-49); THYROXINE (T4) TOTAL 7.3 ug/dl (4.5-10.9); TOTAL PROTEIN 6.6 gm/dL (6.0-8.0)
== END | disposition home or self-care (01) ==
LOC: LAB 11:49
PROVIDERS: ATTEND Urology
DX: N20.0 Calculus of kidney (principal); E83.50 Unspecified disorder of calcium metabolism; R31.9 Hematuria, unspecified

== ENCOUNTER → 2023-10-24 | Outpatient (CLI) | payer OTHER | END | disposition home or self-care (01) | LOC: LAB 12:48 | PROVIDERS: ATTEND Urology | DX: N20.0 Calculus of kidney (principal); R31.9 Hematuria, unspecified; E83.50 Unspecified disorder of calcium metabolism ==

== ENCOUNTER 2023-12-08 02:03 | Emergency (ER) | payer OTHER ==
[~2023-12-08] VITALS: Ht 152.4 cm; Wt 86.8 kg
[2023-12-08] MEDS ORDERED: Metoclopramide Hydrochloride 10 MG/2 ML AMP IV ONE (02:15)
[2023-12-08] MEDS ORDERED: diphenhydrAMINE hydrochloride 50 MG/ML VIAL IV ONE (02:15)
[2023-12-08] MEDS ORDERED: SODIUM CHLORIDE 0.9% 1,000 ML IV ONE (02:15)
[2023-12-08] MEDS ORDERED: IOHEXOL 300 MG/ML 100 ML VIAL IV ONE (02:20)
[2023-12-08 02:45] LABS: BASO % 0.1 % (0.0-1.0); EOS # 0.1 10*3/uL (0.0-0.4); EOS % 0.5 % (1.0-4.0); HEMATOCRIT 35.8 % (37.0-47.0); LYMPH # 1.2 10*3/uL (1.3-4.4); LYMPH % 13.1 % (27.0-41.0); MEAN CORPUSCULAR HGB 30.7 pg (27.0-31.0); MEAN CORPUSCULAR HGB CONC 32.7 g/dl (33.0-37.0); MEAN PLATELET VOLUME 10.4 fl (9.6-12.3); MONO # 0.5 10*3/uL (0.1-1.0); MONO % 5.8 % (3.0-9.0); NEUT # 7.3 10*3/uL (2.3-7.9); NEUT % 80.2 % (47.0-73.0); PLATELET COUNT AUTOMATED 263 10*3/uL (130-400); RED BLOOD COUNT 3.81 10*6/uL (4.10-5.10); RED CELL DISTRI WIDTH 12.6 % (0-14.5); WHITE BLOOD COUNT 9.1 10*3/uL (4.8-10.8)
[2023-12-08] MEDS ORDERED: IOHEXOL 300 MG/ML 100 ML VIAL ONE (02:55)
[2023-12-08 03:08] LABS: ALKALINE PHOSPHATASE 81 U/L (46-116); BUN 11 mg/dl (9-23); CHLORIDE 105 mmol/L (98-107); LIPASE 53 U/L (12-53); POTASSIUM 3.5 mmol/L (3.4-5.1); SGPT/ALT 26 U/L (5-49); TOTAL PROTEIN 6.1 gm/dL (6.0-8.0)
[2023-12-08 05:40] LABS: BILIRUBIN Negative (Negative); BLOOD 3+ (Negative); CLARITY Clear (Clear); COLOR Yellow (Yellow); GLUCOSE Negative (Negative); KETONE Negative (Negative); LEUKO ESTERASE Negative (Negative); NITRITE Negative (Negative); SPECIFIC GRAVITY >= 1.030 (1.001-1.030)
[2023-12-08 05:46] LABS: BACTERIA TRACE; EPITHELIAL CELLS 16-20; RBC 21-30 rbc/hpf (0-2)
[2023-12-08] MEDS ORDERED: MAGNESIUM CITRATE 296 ML BOT PO ONE (06:35)
[2023-12-08] MEDS ORDERED: MIRALAX POWDER17 G1 PO (06:38)
== END 2023-12-08 06:48 | disposition home or self-care (01) ==
LOC: ED 02:03
PROVIDERS: Internal Medicine
DX: K59.00 Constipation, unspecified (principal); R11.2 Nausea with vomiting, unspecified; F41.9 Anxiety disorder, unspecified; K21.9 Gastro-esophageal reflux disease without esophagitis; J45.909 Unspecified asthma, uncomplicated; F90.9 Attention-deficit hyperactivity disorder, unspecified type; Z88.1 Allergy status to other antibiotic agents; Z90.49 Acquired absence of other specified parts of digestive tract; Z98.890 Other specified postprocedural states

== ENCOUNTER → 2023-12-27 | Outpatient (CLI) | payer OTHER ==
[~2023-12-27] MED LIST changes: +MIRALAX POWDER17 G1 PO
== END | disposition home or self-care (01) ==
LOC: US 01:56
PROVIDERS: ATTEND Internal Medicine
DX: I73.9 Peripheral vascular disease, unspecified (principal); R53.83 Other fatigue

== ENCOUNTER 2024-09-07 10:54 | Emergency (ER) | payer OTHER ==
[~2024-09-07] VITALS: Ht 152.4 cm; Wt 85.3 kg
[2024-09-07] MEDS ORDERED: Ondansetron Hydrochloride 4 MG TAB SL ONE (13:50)
[2024-09-07] MEDS ORDERED: ACETAMINOPHEN 325 MG TAB PO ONE (13:55)
[2024-09-07] MEDS ORDERED: IBUPROFEN 600 MG TAB PO ONE (13:55)
[2024-09-07] MEDS ORDERED: Ondansetron4 MG PO (15:26)
[2024-09-07] MEDS ORDERED: AVPAK AZITHROM250 M1 PO (15:26)
[2024-09-07] MEDS ORDERED: AZITHROMYCIN 250 MG TAB PO ONE (15:30)
== END 2024-09-07 15:43 | disposition home or self-care (01) ==
LOC: ED 10:54
DX: J12.9 Viral pneumonia, unspecified (principal); J45.909 Unspecified asthma, uncomplicated; F41.9 Anxiety disorder, unspecified; K21.9 Gastro-esophageal reflux disease without esophagitis; Z20.822 Contact with and (suspected) exposure to COVID-19; Z79.899 Other long term (current) drug therapy; Z88.1 Allergy status to other antibiotic agents

== ENCOUNTER → 2024-10-19 | Outpatient (CLI) | payer OTHER ==
[~2024-10-19] MED LIST changes: +AVPAK AZITHROM250 M1 PO; +Ondansetron4 MG PO
== END | disposition home or self-care (01) ==
LOC: MRI 01:16
PROVIDERS: ATTEND Anesthesiology Pain Medicine
DX: S22.080A Wedge compression fracture of T11-T12 vertebra, initial encounter for closed fracture (principal); M47.27 Other spondylosis with radiculopathy, lumbosacral region; X58.XXXA Exposure to other specified factors, initial encounter; Y93.89 Activity, other specified; Y92.89 Other specified places as the place of occurrence of the external cause; Y99.8 Other external cause status